=== PATIENT | female | born 1990 | race Two or more races ===

== ENCOUNTER 2020-07-03 15:05 | Emergency (ER) | payer MEDICAID, OTHER ==
[~2020-07-03] VITALS: Ht 160 cm; Wt 113.4 kg
[2020-07-03 15:06] VITALS: BP 114/78
[2020-07-03 15:37] LABS: Basophils # (auto) 0.1 10 ^3/uL (0-0.2); Neutrophils # (auto) 6.5 10 ^3/uL (1.6-8.6); White Blood Cell 10.1 10^3/uL (4.4-10.8)
[2020-07-03 15:38] LABS: Basophils % (auto) 0.8 % (0.0-2.0); Eosinophils # (auto) 0.1 10 ^3/uL (0-0.8); Eosinophils % (auto) 1.5 % (0.0-7.0); Hematocrit 34.3 % (36.0-46.0); Hemoglobin 11.9 g/dL (12.2-16.2); Lymphocytes # (auto) 2.8 10 ^3/uL (0.4-5.4); Mean Corpuscular Hemoglobin 24.8 pg (28.0-32.0); Mean Corpuscular Hgb Conc. 34.6 g/dL (32.0-36.0); Mean Corpuscular Volume 71.7 fL (80.0-100.0); Monocytes # (auto) 0.6 10 ^3/uL (0-1.3); Monocytes % (auto) 5.6 % (0.0-12.0); Neutrophils % (auto) 64.1 % (37.0-80.0); Nucleated Red Blood Cells % 0.1 %; Red Blood Cells 4.78 10^6/uL (4.0-5.20); Red Cell Distribution Width 17.2 % (11.8-14.3)
[2020-07-03 15:54] LABS: Albumin 3.7 g/dL (3.4-5.0); BUN/Creatinine Ratio 12.7; Calcium 8.9 mg/dL (8.5-10.1); Potassium 3.8 mmol/L (3.5-5.1)
[2020-07-03 15:56] LABS: Bilirubin, Total 0.3 mg/dL (0.2-1.0); Total Protein 8.3 g/dL (6.4-8.2)
[2020-07-03 16:26] LABS: Urine Bacteria NONE SEEN /hpf (None Seen); Urine Blood Negative /uL (Negative); Urine Mucus FEW (None Seen); Urine Specific Gravity 1.028 (1.001-1.035); Urine WBC 1 /hpf (0 - 5)
== END 2020-07-03 18:08 | disposition home or self-care (01) ==
LOC: ER 15:05
DX: R10.30 Lower abdominal pain, unspecified (principal); D68.59 Other primary thrombophilia; Z98.890 Other specified postprocedural states
CPT/HCPCS: 36415; 74176; 80053; 81001; 81025; 85025

== ENCOUNTER 2021-09-01 23:13 | Emergency (ER) | payer MEDICAID ==
[~2021-09-01] VITALS: Ht 160 cm; Wt 104.3 kg
[2021-09-01 23:42] VITALS: BP 110/65
[2021-09-02] MEDS ORDERED: IBUP800T26 PO (01:29)
[2021-09-02] MEDS ORDERED: KETOROLAC TROMETH 60MG/2ML VIAL IM ONE (01:30)
== END 2021-09-02 01:48 | disposition home or self-care (01) ==
LOC: ER 23:13 → EDBD 23:13 → ER 09-02 01:48
DX: U07.1 COVID-19 (principal)
CPT/HCPCS: 36415; 71045; 87426; 87804; 96372; 99284; J1885

== ENCOUNTER 2022-09-17 16:16 | Emergency (ER) | payer MEDICAID ==
[~2022-09-17] VITALS: Ht 170.2 cm; Wt 113.6 kg
[~2022-09-17 16:16] MED LIST: IBUP-1455 PO
[2022-09-17] MEDS ORDERED: SODIUM CHLORIDE 0.9% 500 ML IV ONE (16:45)
[2022-09-17] MEDS ORDERED: SODIUM CHLORIDE 0.9% 1,000 ML IV ONE (16:45)
[2022-09-17] MEDS ORDERED: methylPREDNISolone SOD SUCC 40 MG/ML VL IV ONE (16:45)
[2022-09-17 17:13] LABS: Basophils # (auto) 0 10 ^3/uL (0-0.2); Basophils % (auto) 0.4 % (0.0-2.0); Eosinophils # (auto) 0 10 ^3/uL (0-0.8); Hematocrit 32.6 % (36.0-46.0); Lymphocytes # (auto) 0.9 10 ^3/uL (0.4-5.4); Lymphocytes % (auto) 19.4 % (10.0-50.0); Mean Corpuscular Hemoglobin 28.9 pg (28.0-32.0); Mean Corpuscular Hgb Conc. 33.8 g/dL (32.0-36.0); Mean Corpuscular Volume 85.6 fL (80.0-100.0); Monocytes # (auto) 0.3 10 ^3/uL (0-1.3); Monocytes % (auto) 7.5 % (0.0-12.0); Neutrophils # (auto) 3.2 10 ^3/uL (1.6-8.6); Neutrophils % (auto) 72.7 % (37.0-80.0); Red Blood Cells 3.81 10^6/uL (4.0-5.20); Red Cell Distribution Width 23.3 % (11.8-14.3); White Blood Cell 4.5 10^3/uL (4.4-10.8)
[2022-09-17 17:29] LABS: Albumin 3.8 g/dL (3.4-5.0); Calcium 8.7 mg/dL (8.5-10.1); Magnesium 2.7 mg/dL (1.6-2.6); Potassium 3.7 mmol/L (3.5-5.1)
[2022-09-17 17:32] LABS: BUN/Creatinine Ratio 16.9 (10.0-20.0); Bilirubin, Total 0.4 mg/dL (0.2-1.0); Total Protein 7.6 g/dL (6.4-8.2)
[2022-09-17 17:46] VITALS: PULSE 99; RESP 22; O2SAT 97
[2022-09-17] MEDS ORDERED: ALBUTEROL SULF 2.5 MG/0.5ML(0.5%) NEB SOLN NEB ONE ×2 (18:00→20:45)
[2022-09-17] MEDS ORDERED: IPRATROPIUM BROM 0.5 MG/2.5ML INH SOL NEB ONE (18:00)
[2022-09-17] MEDS ORDERED: DexAMETHasone SOD PHOS 4 MG/1ML SDV INJ IV ONE (18:00)
[2022-09-17 19:34] LABS: Urine Bacteria NONE SEEN /hpf (None Seen); Urine Blood Negative /uL (Negative); Urine Specific Gravity 1.013 (1.001-1.035); Urine WBC <1 /hpf (0 - 5)
[2022-09-17 19:40] VITALS: PULSE 73; RESP 18; O2SAT 100
[2022-09-17] MEDS ORDERED: MORPHINE SULFATE 4 MG/ML SYR/VIAL IV ONE (20:45)
[2022-09-17] MEDS ORDERED: KETOROLAC TROMETH 30 MG/ML 1ML VIAL IV ONE (20:45)
[2022-09-17] MEDS ORDERED: ONDANSETRON HCL 4 MG/2 ML VIAL IV ONE (20:45)
[2022-09-18] MEDS ORDERED: ALBU108A5 IN (00:19)
[2022-09-18 00:55] VITALS: BP 121/69; PULSE 85; RESP 19; TEMP 98.4; O2SAT 96
== END 2022-09-18 01:02 | disposition home or self-care (01) ==
LOC: EDBD 16:16 → ER 16:16
DX: J45.901 Unspecified asthma with (acute) exacerbation (principal); B34.9 Viral infection, unspecified; R10.2 Pelvic and perineal pain; Z87.39 Personal history of other diseases of the musculoskeletal system and connective tissue
CPT/HCPCS: 36415; 71046; 80053; 81001; 83735; 84702; 85025; 93005; 94640; 96361; 96374; 96375; 99285; J1100; J1885; J2270; J2405; J7030; J7040; J7644

== ENCOUNTER 2022-09-18 12:03 | Emergency (ER) | payer MEDICAID ==
[~2022-09-18] VITALS: Ht 165.1 cm; Wt 124.0 kg
[~2022-09-18 12:03] MED LIST changes: +ALBU108A5 IN
[2022-09-18] MEDS ORDERED: IOHEXOL 350 MG/ML 100ML IJ ONE (13:10)
[2022-09-18 14:01] LABS: Basophils # (auto) 0 10 ^3/uL (0-0.2); Basophils % (auto) 0.5 % (0.0-2.0); Eosinophils # (auto) 0 10 ^3/uL (0-0.8); Hematocrit 32.1 % (36.0-46.0); Hemoglobin 10.8 g/dL (12.2-16.2); Lymphocytes # (auto) 1.6 10 ^3/uL (0.4-5.4); Lymphocytes % (auto) 34.8 % (10.0-50.0); Mean Corpuscular Hemoglobin 29.1 pg (28.0-32.0); Mean Corpuscular Hgb Conc. 33.8 g/dL (32.0-36.0); Mean Corpuscular Volume 86.1 fL (80.0-100.0); Monocytes # (auto) 0.4 10 ^3/uL (0-1.3); Monocytes % (auto) 8.6 % (0.0-12.0); Neutrophils # (auto) 2.5 10 ^3/uL (1.6-8.6); Neutrophils % (auto) 56.1 % (37.0-80.0); Nucleated Red Blood Cells % 0.2 %; Red Blood Cells 3.73 10^6/uL (4.0-5.20); Red Cell Distribution Width 23.3 % (11.8-14.3); White Blood Cell 4.5 10^3/uL (4.4-10.8)
[2022-09-18 14:13] LABS: Albumin 3.8 g/dL (3.4-5.0); Calcium 8.7 mg/dL (8.5-10.1); Potassium 3.1 mmol/L (3.5-5.1)
[2022-09-18 14:16] LABS: BUN/Creatinine Ratio 14.1 (10.0-20.0); Bilirubin, Total 0.4 mg/dL (0.2-1.0); Total Protein 7.9 g/dL (6.4-8.2)
[2022-09-18 15:12] VITALS: PULSE 73; RESP 20; O2SAT 100
[2022-09-18] MEDS ORDERED: DexAMETHasone SOD PHOS 10MG/1ML VIAL INJ IV ONE (17:00)
[2022-09-18] MEDS ORDERED: POTASSIUM CHL 20MEQ/100ML 100 ML IV ONE (17:15)
[2022-09-18 18:48] LABS: Urine Bacteria NONE SEEN /hpf (None Seen); Urine Blood Negative /uL (Negative); Urine WBC 3 /hpf (0 - 5)
[2022-09-18 18:49] LABS: Urine Specific Gravity < 1.035 (1.001-1.035)
[2022-09-18 19:25] VITALS: PULSE 70; RESP 18; O2SAT 100
[2022-09-18 23:20] VITALS: BP 118/77; PULSE 73; RESP 19; TEMP 97.9; O2SAT 99
== END 2022-09-18 23:40 | disposition short-term general hospital (02) ==
LOC: ER 12:03 → EDBD 12:03 → ER 23:36
DX: R06.02 Shortness of breath (principal); R53.1 Weakness; J45.909 Unspecified asthma, uncomplicated; Z20.822 Contact with and (suspected) exposure to COVID-19
CPT/HCPCS: 36415; 36600; 71045; 71275; 80053; 81001; 82805; 83605; 83880; 84484; 85025; 87040; 87077; 87186; 87426; 93005; 96361; 96374; 99285; J1100; J3480; Q9967